=== PATIENT | female | born 1980 | race African-American/Black ===

== ENCOUNTER 2021-09-02 11:55 | Emergency (ER) | payer OTHER ==
[2021-09-02 12:19] VITALS: BP 91/61; PULSE 78; TEMP 98.9; BMI 28.6
[2021-09-02] MEDS ORDERED: ACETAMINOPHEN 325 MG TABLET (FP) PO ONE (12:52)
[2021-09-02] MEDS ORDERED: ACETAMINOPHEN 325 MG TABLET (FP) ONE (13:02)
[2021-09-02 13:13] LABS: BASO % 1.4 % (0-2.0); EOS % 3.9 % (0-4.5); HEMATOCRIT 41.1 % (32.4-45.2); HEMOGLOBIN 13.8 GM/dL (10.7-15.3); LYMPH % 25.6 % (8-40); MCH 32.1 pg (25.7-33.7); MCHC 33.7 g/dl (32.0-36.0); MEAN CELL VOLUME 95.4 fl (80-96); MEAN PLT VOLUME 7.7 fl (7.5-11.1); MONO % 5.5 % (3.8-10.2); NEUT % 63.6 % (42.8-82.8); PLATELET COUNT 209 10^3/uL (134-434); RBC 4.31 M/mm3 (3.60-5.2); RDW 14.5 % (11.6-15.6); WHITE BLOOD COUNT 5.9 K/mm3 (4.0-10.0)
[2021-09-02 14:26] LABS: BLOOD UREA NITROGEN 10.3 mg/dL (7-18); CALCIUM 8.9 mg/dL (8.5-10.1)
[2021-09-02 14:27] LABS: ALBUMIN 3.7 g/dl (3.4-5.0)
[2021-09-02 14:28] LABS: URINE APPEARANCE CLEAR; URINE BILIRUBIN NEGATIVE (NEGATIVE); URINE COLOR YELLOW; URINE GLUCOSE (UA) NEGATIVE (NEGATIVE); URINE KETONE NEGATIVE (NEGATIVE); URINE LEUK ESTERASE NEGATIVE (NEGATIVE); URINE NITRITE NEGATIVE (NEGATIVE); URINE PROTEIN NEGATIVE (NEGATIVE); URINE UROBILINOGEN 0.2 mg/dL (0.2-1.0)
[2021-09-02 14:29] LABS: CREATININE 0.8 mg/dL (0.55-1.3)
[2021-09-02 14:31] LABS: BILIRUBIN,TOTAL 0.7 mg/dL (0.2-1); TOT PROT 6.9 g/dl (6.4-8.2)
== END 2021-09-02 17:01 | disposition home or self-care (01) ==
LOC: JER 11:55
DX: D25.9 Leiomyoma of uterus, unspecified (principal)
CPT/HCPCS: 36415; 74177-TC; 80053; 81003; 84703; 85025; 87086; 99285-25; Q9967

== ENCOUNTER 2021-12-27 04:25 | Inpatient (IN) | payer OTHER ==
[2021-12-24 09:43] VITALS: BMI 28.9
[2021-12-27] MEDS ORDERED: ONDANSETRON 4 MG/2 ML VIAL ONE (09:59)
[2021-12-27] MEDS ORDERED: DEXAMETHASONE SOD PHOSPHATE 4 MG/1 ML VIAL ONE (09:59)
[2021-12-27] MEDS ORDERED: PROPOFOL 40 ML ONE (09:59)
[2021-12-27] MEDS ORDERED: ROCURONIUM BROMIDE 50 MG/5 ML SYRINGE ONE (10:00)
[2021-12-27] MEDS ORDERED: MIDAZOLAM HCL 2 MG/2 ML SINGLE DOSE VIAL ONE (10:00)
[2021-12-27] MEDS ORDERED: SUCCINYLCHOLINE CHLORIDE 200 MG/10 ML SYRINGE ONE (10:00)
[2021-12-27] MEDS ORDERED: LIDOCAINE HCL 2% 100 MG/5 ML DISP.SYRIN ONE (10:02)
[2021-12-27] MEDS ORDERED: VASOPRESSIN 20 UNITS/ML VIAL IV ONE (10:23)
[2021-12-27] MEDS ORDERED: SEVOFLURANE 250 ML BTL ONE (10:46)
[2021-12-27] MEDS ORDERED: HYDROmorphone HCl 2 MG/ML VIAL ONE (10:49)
[2021-12-27] MEDS ORDERED: ceFAZolin SODIUM 1 GM VIAL IVPB ONE (10:50)
[2021-12-27] MEDS ORDERED: ceFAZolin SODIUM 1 GM VIAL ONE (10:51)
[2021-12-27] MEDS ORDERED: PHENYLEPHRINE HCL 10 MG/1 ML SINGLE DOSE VIAL ONE (11:02)
[2021-12-27] MEDS ORDERED: NEOSTIGMINE METHYLSULFATE 0.5 MG/ML - 10 ML MDV ONE (11:05)
[2021-12-27] MEDS ORDERED: ONDANSETRON 4 MG/2 ML VIAL IM PRN (12:56)
[2021-12-27] MEDS ORDERED: ACETAMINOPHEN 1000 MG/100 ML BAG IVPB ONE (13:35)
[2021-12-27] MEDS ORDERED: HYDROmorphone HCl 2 MG/ML VIAL IVPUSH ONE ×2 (15:52→16:06)
[2021-12-27] MEDS: LACTATED RINGERS SOLUTION 1,000 ML IV SCH (17:18)
[2021-12-27] MEDS: IBUPROFEN 600 MG TABLET (FP) PO PRN (19:13)
[2021-12-27] MEDS: oxyCODONE HCL 5 MG TABLET PO PRN (21:23)
[2021-12-28] MEDS: LACTATED RINGERS SOLUTION 1,000 ML IV SCH ×2 (04:10→12:17)
[2021-12-28] MEDS: oxyCODONE HCL 5 MG TABLET PO PRN ×3 (04:12→14:04)
[2021-12-28 08:37] LABS: HEMATOCRIT 18.5 % (32.4-45.2); MCH 32.7 pg (25.7-33.7); MCHC 34.4 g/dl (32.0-36.0); PLATELET COUNT 154 10^3/uL (134-434); RBC 1.95 M/mm3 (3.60-5.2); RDW 13.7 % (11.6-15.6); WHITE BLOOD COUNT 9.6 K/mm3 (4.0-10.0)
[2021-12-28 09:22] LABS: HEMOGLOBIN 6.4 GM/dL (10.7-15.3)
[2021-12-28] MEDS: IBUPROFEN 600 MG TABLET (FP) PO PRN (19:20)
[2021-12-28 22:42] VITALS: RESP 18
[2021-12-28] MEDS: FERROUS SO4 325 MG TABLET (FP) PO SCH (22:42)
[2021-12-29] MEDS: IBUPROFEN 600 MG TABLET (FP) PO PRN ×4 (01:15→21:50)
[2021-12-29] MEDS: LACTATED RINGERS SOLUTION 1,000 ML IV SCH (04:48)
[2021-12-29] MEDS: oxyCODONE HCL 5 MG TABLET PO PRN ×3 (05:16→17:45)
[2021-12-29 09:26] LABS: HEMATOCRIT 23.5 % (32.4-45.2); MCH 30.5 pg (25.7-33.7); MCHC 34.2 g/dl (32.0-36.0); MEAN CELL VOLUME 89.1 fl (80-96); MEAN PLT VOLUME 8.3 fl (7.5-11.1); PLATELET COUNT 134 10^3/uL (134-434); RBC 2.64 M/mm3 (3.60-5.2); RDW 16.5 % (11.6-15.6); WHITE BLOOD COUNT 14.9 K/mm3 (4.0-10.0)
[2021-12-29] MEDS: FERROUS SO4 325 MG TABLET (FP) PO SCH ×2 (10:54→21:50)
[2021-12-29] MEDS: DOCUSATE SODIUM 100 MG CAPSULE (FP) PO PRN ×2 (15:30→21:50)
[2021-12-30] MEDS: oxyCODONE HCL 5 MG TABLET PO PRN ×2 (02:47→10:34)
[2021-12-30] MEDS: IBUPROFEN 600 MG TABLET (FP) PO PRN ×2 (06:10→13:26)
[2021-12-30] MEDS: FERROUS SO4 325 MG TABLET (FP) PO SCH (10:34)
[2021-12-30 14:17] VITALS: BP 127/72; PULSE 109; TEMP 97.7
== END 2021-12-30 16:37 | disposition home or self-care (01) | DRG 519 ==
LOC: J2C 04:25 → EDSTATUS 13:32 → J5S 17:28
PROVIDERS: ADMIT Obstetrics & Gynecology; ATTEND Obstetrics & Gynecology
PROC: 0UB90ZZ Excision of Uterus, Open Approach (ICD-10-PCS; principal; 2021-12-27 10:00)
PROC: 30233N1 Transfusion of Nonautologous Red Blood Cells into Peripheral Vein, Percutaneous Approach (ICD-10-PCS; 2021-12-28)
DX: D25.9 Leiomyoma of uterus, unspecified (principal); D64.9 Anemia, unspecified
CPT/HCPCS: 36415; 36430; 81025; 85027; 86850; 86900; 86901; 86922; 88305-TC; 94760; P9058